=== PATIENT | male | born 1970 | race Caucasian/White ===

== ENCOUNTER 2022-11-15 19:22 | Emergency (ER) | payer BC ==
[~2022-11-15] VITALS: Ht 167.6 cm; Wt 80.9 kg
[2022-11-15 22:14] LABS: BASO % 0.3 % (0.0-1.0); EOS % 0.1 % (0.0-3.0); HEMATOCRIT 45.5 % (42.0-52.0); HEMOGLOBIN 16.2 g/dl (13.5-17.5); LYMPH # 1.3 10^3/uL (1.5-5.0); LYMPH % 11.4 % (24.0-44.0); MEAN CORPUSCULAR HEMOGLOBIN 30.3 pg (27.0-33.0); MEAN CORPUSCULAR HGB CONC 35.6 g/dl (32.0-36.5); MEAN CORPUSCULAR VOLUME 85.2 fl (80.0-96.0); MONO # 0.4 10^3/uL (0.0-0.8); MONO % 3.6 % (2.0-8.0); NEUTROPHILS # 9.2 10^3/uL (1.5-8.5); NEUTROPHILS % 84.2 % (36.0-66.0); PLATELET COUNT, AUTOMATED 244 10^3/uL (150-450); RED BLOOD COUNT 5.34 10^6/uL (4.30-6.10); WHITE BLOOD COUNT 10.9 10^3/uL (4.0-10.0)
[2022-11-15 22:51] LABS: BLOOD UREA NITROGEN 16 MG/DL (9-23); CALCIUM LEVEL 9.2 MG/DL (8.5-10.1); CARBON DIOXIDE LEVEL 31 MMOL/L (20-31); CHLORIDE LEVEL 101 MMOL/L (98-107); CK-MB VALUE MASS 14.3 NG/ML (<3.6); CREATININE FOR GFR 1.13 MG/DL (0.70-1.30); GLOMERULAR FILTRATION RATE > 60.0 (>56); GLUCOSE, FASTING 112 MG/DL (60-100); POTASSIUM SERUM 4.3 MMOL/L (3.5-5.1); SODIUM LEVEL 140 MMOL/L (136-145)
[2022-11-15 22:54] LABS: CPK CREATINE PHOSPHOKINASE 356 U/L (46-171); MB/CK RELATIVE INDEX 4.01 (< OR =4)
[2022-11-15] MEDS ORDERED: hydrALAZINE 20MG/ML 1ML VIAL IV STA (23:03)
[2022-11-15] MEDS ORDERED: NITROGLYCERIN 0.4MG SUBL TABLET SL PRN (23:05)
[2022-11-16 00:17] LABS: RSV AMPLIFICATION NEGATIVE (NEGATIVE)
[2022-11-16] MEDS ORDERED: HEPARIN DRIP 25,000 UNITS in IV 1 EA IV SCH (01:10)
[2022-11-16] MEDS ORDERED: hydrALAZINE 20MG/ML 1ML VIAL IV STA (01:14)
[2022-11-16 01:27] LABS: INR 0.92; PROTHROMBIN TIME 12.6 SECONDS (12.5-14.5)
[2022-11-16 01:28] LABS: PARTIAL THROMBOPLASTIN TIME 31.9 SECONDS (24.8-34.2)
[2022-11-16 02:28] LABS: CK-MB VALUE MASS 13.1 NG/ML (<3.6); MB/CK RELATIVE INDEX 3.66 (< OR =4)
[2022-11-16 06:30] VITALS: BP 151/93
== END 2022-11-16 06:40 | disposition short-term general hospital (02) ==
LOC: M ED 19:22
DX: I21.4 Non-ST elevation (NSTEMI) myocardial infarction (principal); I10 Essential (primary) hypertension; Z82.49 Family history of ischemic heart disease and other diseases of the circulatory system
CPT/HCPCS: 71045; 80048; 82550; 82553; 84484; 85025; 85610; 85730; 87631; 93005; 93041; 94760; 96374; 96375; 96376; 99285; J0360; J1644

== ENCOUNTER 2023-07-07 21:37 | Inpatient (IN) | payer BC ==
[~2023-07-07] VITALS: Ht 167.6 cm; Wt 72.7 kg
[2023-07-07 22:15] LABS: BASO % 0.2 % (0.0-1.0); EOS # 0.1 10^3/uL (0.0-0.5); EOS % 0.7 % (0.0-3.0); HEMATOCRIT 44.4 % (42.0-52.0); HEMOGLOBIN 15.7 g/dl (13.5-17.5); LYMPH # 1.7 10^3/uL (1.5-5.0); MEAN CORPUSCULAR HEMOGLOBIN 30.4 pg (27.0-33.0); MEAN CORPUSCULAR HGB CONC 35.4 g/dl (32.0-36.5); MEAN CORPUSCULAR VOLUME 85.9 fl (80.0-96.0); MONO # 0.5 10^3/uL (0.0-0.8); MONO % 5.6 % (2.0-8.0); NEUTROPHILS # 6.1 10^3/uL (1.5-8.5); NEUTROPHILS % 73.3 % (36.0-66.0); PLATELET COUNT, AUTOMATED 216 10^3/uL (150-450); RED BLOOD COUNT 5.17 10^6/uL (4.30-6.10); WHITE BLOOD COUNT 8.4 10^3/uL (4.0-10.0)
[2023-07-07 22:39] LABS: BLOOD UREA NITROGEN 26 MG/DL (9-23); CALCIUM LEVEL 9.1 MG/DL (8.5-10.1); CARBON DIOXIDE LEVEL 24 MMOL/L (20-31); CHLORIDE LEVEL 104 MMOL/L (98-107); CREATININE FOR GFR 0.82 MG/DL (0.70-1.30); GLOMERULAR FILTRATION RATE > 60.0 (>56); GLUCOSE, FASTING 156 MG/DL (60-100); POTASSIUM SERUM 3.8 MMOL/L (3.5-5.1); SODIUM LEVEL 140 MMOL/L (136-145)
[2023-07-07 22:54] LABS: CPK CREATINE PHOSPHOKINASE 409 U/L (46-171); MB/CK RELATIVE INDEX 3.66 (< OR =4)
[2023-07-08 03:55] LABS: CK-MB VALUE MASS 15.8 NG/ML (<3.6)
[2023-07-08 03:56] LABS: MB/CK RELATIVE INDEX 4.2 (< OR =4)
[2023-07-08] MEDS ORDERED: METOPROLOL 5 MG/5 ML VIAL As Ordered ONE (06:32)
[2023-07-08] MEDS: METOPROLOL 5 MG/5 ML VIAL IV SCH ×3 (06:35→06:42)
[2023-07-08] MEDS ORDERED: NS 1,000 ML IV ONE (06:35)
[2023-07-08] MEDS ORDERED: dilTIAZem 25MG/5ML VIAL IV STA (06:52)
[2023-07-08] MEDS ORDERED: dilTIAZem 25MG/5ML VIAL As Ordered ONE (06:53)
[2023-07-08 07:48] LABS: THYROID STIMULATING HORMONE 1.814 uIU/ML (0.55-4.78)
[2023-07-08 08:38] LABS: AMPHETAMINES LEVEL URINE NEGATIVE (NEGATIVE); BARBITURATES URINE NEGATIVE (NEGATIVE); BENZODIAZEPINES URINE NEGATIVE (NEGATIVE); CANNABINOIDS URINE NEGATIVE (NEGATIVE); COCAINE METABOLITE URINE NEGATIVE (NEGATIVE); METHADONE URINE NEGATIVE (NEGATIVE); OPIATES URINE NEGATIVE (NEGATIVE); PHENCYCLIDINE URINE NEGATIVE (NEGATIVE)
[2023-07-08] MEDS ORDERED: dilTIAZem 60 MG TAB PO ONE (08:45)
[2023-07-08] MEDS ORDERED: ASPIRIN 81MG CHEW TABLET PO ONE (09:00)
[2023-07-08] MEDS ORDERED: CLOPIDOGREL 75 MG TAB PO ONE (09:00)
[2023-07-08] MEDS: LOSARTAN 25 MG TAB PO SCH (09:00)
[2023-07-08 10:17] LABS: HEMOGLOBIN A1c 5.3 % (4.0-6.0)
[2023-07-08] MEDS ORDERED: MED REC IN PROGRESS XX SCH ×2 (13:25→13:30)
[2023-07-08] MEDS ORDERED: CO Q10CA PO (14:02)
[2023-07-08] MEDS ORDERED: garlique PO (14:02)
[2023-07-08] MEDS ORDERED: CLOP75TA2 PO (14:02)
[2023-07-08] MEDS ORDERED: B-COTAB10 PO (14:02)
[2023-07-08] MEDS ORDERED: METO1TAB87 PO (14:02)
[2023-07-08] MEDS ORDERED: LISI5TAB11 PO (14:02)
[2023-07-08] MEDS ORDERED: ASPI81CH48 PO (14:02)
[2023-07-08] MEDS ORDERED: HOME MED LIST COMPLETE! XX SCH (14:15)
[2023-07-08] MEDS ORDERED: ACETAMINOPHEN TAB 650MG DOSE (2X325MG) PO PRN (15:00)
[2023-07-08] MEDS ORDERED: MOM 30ML SUSPENSION UDC PO PRN (15:00)
[2023-07-08] MEDS ORDERED: MAALOX 30 ML SUSP *UDC PO PRN (15:00)
[2023-07-08 16:01] LABS: RSV AMPLIFICATION NEGATIVE (NEGATIVE)
[2023-07-08 16:14] LABS: CHOLESTEROL RISK RATIO 5.46 (<5); HDL CHOLESTEROL 46.1 MG/DL (>40); LDL CHOLESTEROL 171.5 MG/DL (<100); NON-HDL-C 205.9 MG/DL
[2023-07-08 16:22] LABS: INR 1.09; PARTIAL THROMBOPLASTIN TIME 30.3 SECONDS (24.8-34.2); PROTHROMBIN TIME 13.8 SECONDS (12.5-14.5)
[2023-07-08 16:28] VITALS: BP 124/84; TEMP 98.5; O2SAT 97
[2023-07-08] MEDS: dilTIAZem 60 MG TAB PO SCH ×2 (16:43→21:35)
[2023-07-08] MEDS ORDERED: RIVAROXABAN 10MG TAB (XARELTO) PO SCH (18:00)
[2023-07-08 20:00] VITALS: BP 131/85; TEMP 97.4; O2SAT 97
[2023-07-09] VITALS: BP 120/80; TEMP 97; O2SAT 96
[2023-07-09] MEDS: dilTIAZem 60 MG TAB PO SCH (03:00)
[2023-07-09 04:00] VITALS: BP 130/91; TEMP 97.5; O2SAT 97
[2023-07-09 05:07] LABS: BLOOD UREA NITROGEN 18 MG/DL (9-23); CARBON DIOXIDE LEVEL 25 MMOL/L (20-31); CHLORIDE LEVEL 107 MMOL/L (98-107); CREATININE FOR GFR 0.77 MG/DL (0.70-1.30); GLOMERULAR FILTRATION RATE > 60.0 (>56); GLUCOSE, FASTING 106 MG/DL (60-100); MAGNESIUM LEVEL 1.8 MG/DL (1.8-2.4); POTASSIUM SERUM 4.1 MMOL/L (3.5-5.1); SODIUM LEVEL 141 MMOL/L (136-145)
[2023-07-09] MEDS: MAG SULF 1GM/100ML (MAG RUN) 1 GM in IV 1 EA IV SCH ×2 (07:40→09:45)
[2023-07-09 07:48] VITALS: BP 128/86; TEMP 98; O2SAT 96
[2023-07-09] MEDS: LOSARTAN 25 MG TAB PO SCH (09:00)
[2023-07-09] MEDS ORDERED: ASPIRIN 81MG CHEW TABLET PO SCH (09:00)
[2023-07-09] MEDS ORDERED: CLOPIDOGREL 75 MG TAB PO SCH (09:00)
[2023-07-09] MEDS ORDERED: dilTIAZem **CD** 180MG CAP PO SCH (09:00)
[2023-07-09 09:44] VITALS: BP 128/86
[2023-07-09] MEDS ORDERED: MAGN400T35 PO (11:29)
[2023-07-09] MEDS ORDERED: CARD180C4 PO (11:29)
[2023-07-09] MEDS ORDERED: COZA1TAB PO (11:29)
== END 2023-07-09 12:43 | disposition home or self-care (01) | DRG 201 ==
LOC: M ED 21:37 → M ED INP 07-08 14:19 → M ICU 07-08 16:22
PROVIDERS: ADMIT Student in an Organized Health Care Education/Training Program; ATTEND Student in an Organized Health Care Education/Training Program
DX: I47.1 Supraventricular tachycardia (principal); E83.42 Hypomagnesemia; I10 Essential (primary) hypertension; I49.1 Atrial premature depolarization; E78.01 Familial hypercholesterolemia; K59.00 Constipation, unspecified; I25.2 Old myocardial infarction; I25.10 Atherosclerotic heart disease of native coronary artery without angina pectoris; Z95.828 Presence of other vascular implants and grafts; Z83.3 Family history of diabetes mellitus; Z79.82 Long term (current) use of aspirin; Z79.899 Other long term (current) drug therapy; Z88.6 Allergy status to analgesic agent; Z20.822 Contact with and (suspected) exposure to COVID-19

== ENCOUNTER 2023-07-13 23:51 | Emergency (ER) | payer BC ==
[~2023-07-13] VITALS: Ht 167.6 cm; Wt 70.9 kg
[~2023-07-13 23:51] MED LIST: ASPI81CH48 PO; B-COTAB10 PO; CARD180C4 PO; CLOP75TA2 PO; CO Q10CA PO; COZA1TAB PO; LISI5TAB11 PO; MAGN400T35 PO; METO1TAB87 PO; garlique PO
[2023-07-14 00:26] LABS: BASO # 0.1 10^3/uL (0.0-0.2); BASO % 0.5 % (0.0-1.0); EOS # 0.1 10^3/uL (0.0-0.5); HEMATOCRIT 49.9 % (42.0-52.0); HEMOGLOBIN 17.7 g/dl (13.5-17.5); LYMPH # 3.3 10^3/uL (1.5-5.0); LYMPH % 35.4 % (24.0-44.0); MEAN CORPUSCULAR HEMOGLOBIN 30.2 pg (27.0-33.0); MEAN CORPUSCULAR HGB CONC 35.5 g/dl (32.0-36.5); MONO # 0.6 10^3/uL (0.0-0.8); MONO % 6.1 % (2.0-8.0); NEUTROPHILS # 5.3 10^3/uL (1.5-8.5); NEUTROPHILS % 56.9 % (36.0-66.0); PLATELET COUNT, AUTOMATED 279 10^3/uL (150-450); RED BLOOD COUNT 5.87 10^6/uL (4.30-6.10); WHITE BLOOD COUNT 9.3 10^3/uL (4.0-10.0)
[2023-07-14] MEDS ORDERED: dilTIAZem 25MG/5ML VIAL IV STA (00:26)
[2023-07-14] MEDS ORDERED: NS 500 ML IV ONE (00:30)
[2023-07-14 00:38] LABS: INR 1.18; PROTHROMBIN TIME 14.7 SECONDS (12.5-14.5)
[2023-07-14 00:39] LABS: PARTIAL THROMBOPLASTIN TIME 31.2 SECONDS (24.8-34.2)
[2023-07-14 00:46] LABS: THYROID STIMULATING HORMONE 2.962 uIU/ML (0.55-4.78)
[2023-07-14 01:06] LABS: ALBUMIN 4.6 G/DL (3.2-5.2); ALKALINE PHOSPHATASE 65 U/L (46-116); ALT/SGPT 51 U/L (7.0-40); AST/SGOT 81 U/L (<34); BILIRUBIN,DIRECT 0.2 MG/DL (<0.4); BILIRUBIN,TOTAL 0.8 MG/DL (0.3-1.2); BLOOD UREA NITROGEN 19 MG/DL (9-23); CARBON DIOXIDE LEVEL 24 MMOL/L (20-31); CHLORIDE LEVEL 101 MMOL/L (98-107); CK-MB VALUE MASS 13.7 NG/ML (<3.6); CPK CREATINE PHOSPHOKINASE 375 U/L (46-171); CREATININE FOR GFR 0.73 MG/DL (0.70-1.30); FREE T4 2.17 NG/DL (0.89-1.76); GLOMERULAR FILTRATION RATE > 60.0 (>56); GLUCOSE, FASTING 107 MG/DL (60-100); MB/CK RELATIVE INDEX 3.65 (< OR =4); POTASSIUM SERUM 4.8 MMOL/L (3.5-5.1); SODIUM LEVEL 137 MMOL/L (136-145); TOTAL PROTEIN 7.7 G/DL (5.7-8.2)
[2023-07-14 02:09] LABS: CK-MB VALUE MASS 11.8 NG/ML (<3.6)
[2023-07-14 02:10] LABS: MB/CK RELATIVE INDEX 4.24 (< OR =4)
[2023-07-14 03:54] LABS: CK-MB VALUE MASS 10.9 NG/ML (<3.6)
[2023-07-14 03:55] LABS: MB/CK RELATIVE INDEX 4.16 (< OR =4)
[2023-07-14] MEDS ORDERED: CO Q100C PO (05:52)
[2023-07-14] MEDS ORDERED: ASPI-161 PO (05:52)
[2023-07-14] MEDS ORDERED: CLOP75TA99 PO (05:52)
[2023-07-14] MEDS ORDERED: DILT180C95 PO (05:52)
[2023-07-14] MEDS ORDERED: MAGN400T2 PO (05:52)
[2023-07-14] MEDS ORDERED: LOSA25TA13 PO (05:52)
[2023-07-14] MEDS ORDERED: VITATAB73 PO (05:52)
[2023-07-14 05:55] VITALS: BP 145/76
[2023-07-14] MEDS ORDERED: dilTIAZem 120MG **CD** CAPSULE PO ONE (05:55)
[2023-07-14] MEDS ORDERED: HOME MED LIST COMPLETE! XX SCH (05:55)
[2023-07-14 06:15] VITALS: BP 150/94; TEMP 98.8; O2SAT 95
== END 2023-07-14 06:30 | disposition home or self-care (01) ==
LOC: M ED 23:51
DX: R00.2 Palpitations (principal); R00.0 Tachycardia, unspecified; I11.9 Hypertensive heart disease without heart failure; I25.10 Atherosclerotic heart disease of native coronary artery without angina pectoris; Z88.8 Allergy status to other drugs, medicaments and biological substances; Z79.82 Long term (current) use of aspirin; Z79.899 Other long term (current) drug therapy